=== PATIENT | female | born 1995 | race Caucasian/White ===

== ENCOUNTER 2021-11-16 17:37 | Emergency (ER) | payer OTHER ==
[~2021-11-16] VITALS: Ht 162.6 cm; Wt 115.2 kg
[~2021-11-16 17:37] MED LIST: CHOL10002; CYAN500 PO; DOXYCYC MONO; L-THEANINE25 GM PO; METF500 PO; Omeprazole20 M1 PO; Percocet 5-3251 EACH PO; Phenergan25 M1 PO; SERT100 PO; Sulfamethoxazo1 EAC4 PO; [UNRECOGNIZED DRUG - OTHER]
[2021-11-16 18:45] LABS: Source, Urine Clean Catch
[2021-11-16 18:48] LABS: Appearance, Urine Clear (Clear); Bilirubin, Urine Neg (Neg); Blood, Urine Neg (Neg); Glucose Qualitative, Urine Neg (Neg); Ketones, Urine Neg (Neg); Leukocyte Esterase, Urine Neg (Neg); Nitrite, Urine Neg (Neg); Protein, Urine Neg (Neg); Urobilinogen, Urine NORM (Normal); pH, Urine 6.5 (5.0-8.0)
[2021-11-16 19:09] LABS: BASOPHILS ABSOLUTE AUTO 0.03 K/mm3 (0.00-0.23); BASOPHILS PERCENT AUTO 0 % (0-2); EOSINOPHILS ABSOLUTE AUTO 0.03 K/mm3 (0.00-0.68); EOSINOPHILS PERCENT AUTO 0 % (0-6); Hematocrit 39.1 % (33.0-51.0); Hemoglobin 12.5 g/dL (11.5-16.0); IMMATURE GRAN ABSOLUTE AUTO 0.04 K/mm3 (0.00-0.10); IMMATURE GRAN PERCENT AUTO 0 % (0-1); LYMPHOCYTES ABSOLUTE AUTO 3.45 K/mm3 (0.84-5.20); LYMPHOCYTES PERCENT AUTO 25 % (21-46); MONOCYTES ABSOLUTE AUTO 0.83 K/mm3 (0.16-1.47); MONOCYTES PERCENT AUTO 6 % (4-13); Mean Corpuscular HGB 27.2 pg (26.0-34.0); Mean Corpuscular Volume 85 fL (80-100); Mean Platelet Volume 10.9 fL (9.1-12.4); NEUTROPHILS ABSOLUTE AUTO 9.29 K/mm3 (1.96-9.15); NEUTROPHILS PERCENT AUTO 68 % (41-73); Platelet Count 281 K/mm3 (150-400); RDW Standard Deviation 46.5 fL (35.1-46.3); White Blood Cell Count 13.67 K/mm3 (4.00-11.30)
[2021-11-16 19:15] LABS: Color, Urine Pale Yellow (P-Yellow)
[2021-11-16 19:29] LABS: Albumin, Blood 3.4 g/dL (3.4-5.0); Bilirubin, Total 0.3 mg/dL (0.1-1.0); Bun/Creatinine Ratio 11.8 (12.0-20.0); Calcium, Blood 9.2 mg/dL (8.5-10.1); Creatinine, Blood 0.59 mg/dL (0.40-1.00); Globulin, Blood 3.5 g/dL (2.2-4.0); Potassium, Blood 3.5 mmol/L (3.5-5.5); Total Protein, Blood 6.9 g/dL (6.4-8.2)
== END 2021-11-17 00:04 | disposition home or self-care (01) ==
LOC: ER 17:37
PROVIDERS: Physician Assistant
DX: O20.8 Other hemorrhage in early pregnancy (principal); Z3A.08 8 weeks gestation of pregnancy; O26.891 Other specified pregnancy related conditions, first trimester; Z67.91 Unspecified blood type, Rh negative; Z88.8 Allergy status to other drugs, medicaments and biological substances; Z79.899 Other long term (current) drug therapy
CPT/HCPCS: 36415; 76801; 76817; 80053; 81003; 85025; 86900; 86901; 96372; 99284-25; J2791

== ENCOUNTER 2022-06-02 04:27 | Inpatient (IN) | payer OTHER ==
[~2022-06-02] VITALS: Ht 162.6 cm; Wt 124.1 kg
[2022-06-02] MEDS ORDERED: PANT20 PO ×2 (05:22→05:23)
[2022-06-02] MEDS ORDERED: FERSU90EL (05:24)
[2022-06-02] MEDS ORDERED: Folbee Plus Tabl5 MG (05:24)
[2022-06-02] MEDS ORDERED: ASPI81CH PO (05:25)
[2022-06-02] MEDS ORDERED: VITAMIN D-40010 MC1 (05:25)
[2022-06-02] MEDS ORDERED: ESCI20 PO (05:26)
[2022-06-02 10:01] LABS: BASOPHILS ABSOLUTE AUTO 0.03 K/mm3 (0.00-0.23); BASOPHILS PERCENT AUTO 0 % (0-2); EOSINOPHILS ABSOLUTE AUTO 0.04 K/mm3 (0.00-0.68); EOSINOPHILS PERCENT AUTO 0 % (0-6); Hematocrit 33.9 % (33.0-51.0); Hemoglobin 11.2 g/dL (11.5-16.0); IMMATURE GRAN ABSOLUTE AUTO 0.04 K/mm3 (0.00-0.10); IMMATURE GRAN PERCENT AUTO 0 % (0-1); LYMPHOCYTES ABSOLUTE AUTO 2.16 K/mm3 (0.84-5.20); LYMPHOCYTES PERCENT AUTO 18 % (21-46); MONOCYTES ABSOLUTE AUTO 0.62 K/mm3 (0.16-1.47); MONOCYTES PERCENT AUTO 5 % (4-13); Mean Corpuscular HGB 27.9 pg (26.0-34.0); Mean Corpuscular Volume 84 fL (80-100); Mean Platelet Volume 11.3 fL (9.1-12.4); NEUTROPHILS ABSOLUTE AUTO 9.23 K/mm3 (1.96-9.15); NEUTROPHILS PERCENT AUTO 76 % (41-73); Platelet Count 190 K/mm3 (150-400); RDW Coefficient Variation 15.6 % (11.7-14.2); RDW Standard Deviation 47.1 fL (35.1-46.3); Red Blood Cell Count 4.02 M/mm3 (3.80-5.20); White Blood Cell Count 12.12 K/mm3 (4.00-11.30)
[2022-06-03 07:04] LABS: BASOPHILS ABSOLUTE AUTO 0.04 K/mm3 (0.00-0.23); BASOPHILS PERCENT AUTO 0 % (0-2); EOSINOPHILS ABSOLUTE AUTO 0.07 K/mm3 (0.00-0.68); EOSINOPHILS PERCENT AUTO 1 % (0-6); Hematocrit 32.7 % (33.0-51.0); Hemoglobin 10.8 g/dL (11.5-16.0); IMMATURE GRAN ABSOLUTE AUTO 0.04 K/mm3 (0.00-0.10); IMMATURE GRAN PERCENT AUTO 0 % (0-1); LYMPHOCYTES ABSOLUTE AUTO 2.91 K/mm3 (0.84-5.20); LYMPHOCYTES PERCENT AUTO 20 % (21-46); MONOCYTES ABSOLUTE AUTO 0.96 K/mm3 (0.16-1.47); MONOCYTES PERCENT AUTO 7 % (4-13); Mean Corpuscular HGB 28.3 pg (26.0-34.0); Mean Corpuscular Volume 86 fL (80-100); Mean Platelet Volume 11.5 fL (9.1-12.4); NEUTROPHILS ABSOLUTE AUTO 10.39 K/mm3 (1.96-9.15); NEUTROPHILS PERCENT AUTO 72 % (41-73); Platelet Count 178 K/mm3 (150-400); RDW Coefficient Variation 15.8 % (11.7-14.2); RDW Standard Deviation 49.3 fL (35.1-46.3); Red Blood Cell Count 3.81 M/mm3 (3.80-5.20); White Blood Cell Count 14.41 K/mm3 (4.00-11.30)
[2022-06-04] MEDS ORDERED: IBUP800 PO (13:59)
--- NOTE | 2022-06-04 18:22 | NUR ---
BOARDER STATUS MOTHER TO BOARDER STATUS BABY WONT BE DISCHARGE UNTIL THE MORNING. CARING FOR SELF AND BABY INDEPENDANTLY. LOCHIA SCANT. VSS. AFEBRILE. VERBALIZES UNDERSTANDING OF DC INSTRUCTIONS AND FOLLOW UP APPIONTMENTS. NO QUESTIONS OR CONCERNS.
== END 2022-06-04 18:10 | disposition home or self-care (01) | DRG 807 ==
LOC: OBS 04:27 → BC 04:29 → OBS 04:41 → BC 19:17
PROVIDERS: Family Medicine; ADMIT Obstetrics & Gynecology
PROC: 10E0XZZ Delivery of Products of Conception, External Approach (ICD-10-PCS; principal; 2022-06-02)
PROC: 3E0R3BZ Introduction of Anesthetic Agent into Spinal Canal, Percutaneous Approach (ICD-10-PCS; 2022-06-02)
PROC: 00HU33Z Insertion of Infusion Device into Spinal Canal, Percutaneous Approach (ICD-10-PCS; 2022-06-02)
DX: O42.02 Full-term premature rupture of membranes, onset of labor within 24 hours of rupture (principal); Z37.0 Single live birth; O99.344 Other mental disorders complicating childbirth; F41.9 Anxiety disorder, unspecified; Z3A.37 37 weeks gestation of pregnancy; Z98.890 Other specified postprocedural states; Z88.8 Allergy status to other drugs, medicaments and biological substances; Z79.899 Other long term (current) drug therapy; Z79.82 Long term (current) use of aspirin
CPT/HCPCS: 36415; 51702; 59025; 59070; 85025; 86850; 86870; 86900; 86901; A9270; C1751; C9113; J1885; J2210; J2405; J2590; J7120

== ENCOUNTER 2022-07-04 20:19 | Observation (INO) | payer OTHER ==
[~2022-07-04] VITALS: Ht 162.6 cm; Wt 118.0 kg
[~2022-07-04 20:19] MED LIST changes: +ASPI81CH PO; +CEFD300 PO; +ESCI20 PO; +FERSU90EL; +Folbee Plus Tabl5 MG; +IBUP800 PO; +PANT20 PO; +VITAMIN D-40010 MC1
[2022-07-04 21:22] LABS: BASOPHILS ABSOLUTE AUTO 0.03 K/mm3 (0.00-0.23); BASOPHILS PERCENT AUTO 0 % (0-2); EOSINOPHILS PERCENT AUTO 1 % (0-6); Hematocrit 39.5 % (33.0-51.0); IMMATURE GRAN ABSOLUTE AUTO 0.01 K/mm3 (0.00-0.10); IMMATURE GRAN PERCENT AUTO 0 % (0-1); LYMPHOCYTES PERCENT AUTO 13 % (21-46); MONOCYTES ABSOLUTE AUTO 0.36 K/mm3 (0.16-1.47); MONOCYTES PERCENT AUTO 5 % (4-13); Mean Corpuscular HGB 28.2 pg (26.0-34.0); Mean Corpuscular HGB Conc 32.9 g/dL (31.5-36.5); Mean Corpuscular Volume 86 fL (80-100); Mean Platelet Volume 10.5 fL (9.1-12.4); NEUTROPHILS ABSOLUTE AUTO 6.43 K/mm3 (1.96-9.15); NEUTROPHILS PERCENT AUTO 81 % (41-73); Platelet Count 236 K/mm3 (150-400); RDW Coefficient Variation 15.3 % (11.7-14.2); RDW Standard Deviation 48.4 fL (35.1-46.3); Red Blood Cell Count 4.61 M/mm3 (3.80-5.20); White Blood Cell Count 7.93 K/mm3 (4.00-11.30)
[2022-07-04 21:30] LABS: Source, Urine Clean Catch
[2022-07-04 21:37] LABS: Appearance, Urine Clear (Clear); Bilirubin, Urine Neg (Neg); Blood, Urine 3+ (Neg); Color, Urine Yellow (P-Yellow); Glucose Qualitative, Urine Neg (Neg); Ketones, Urine Neg (Neg); Leukocyte Esterase, Urine 2+ (Neg); Nitrite, Urine Neg (Neg); Protein, Urine 1+ (Neg); Urobilinogen, Urine NORM (Normal)
[2022-07-04 21:40] LABS: Albumin, Blood 3.3 g/dL (3.4-5.0); Bilirubin, Total 0.3 mg/dL (0.1-1.0); Bun/Creatinine Ratio 18.7 (12.0-20.0); Calcium, Blood 8.4 mg/dL (8.5-10.1); Creatinine, Blood 0.91 mg/dL (0.40-1.00); Globulin, Blood 3.3 g/dL (2.2-4.0); Potassium, Blood 3.9 mmol/L (3.5-5.5); Total Protein, Blood 6.6 g/dL (6.4-8.2)
[2022-07-04 21:49] LABS: Bacteria Many /hpf; Red Blood Cells, Urine 0-2 /hpf (0-2); Squamous Epithelial Cells Mod /hpf (Few)
[2022-07-05] MEDS ORDERED: [UNRECOGNIZED DRUG - OTHER] PO (01:46)
[2022-07-05] MEDS ORDERED: FERROUS GLUCON240 MG PO (01:51)
[2022-07-05] MEDS ORDERED: VITAMIN B-625 MG PO (01:51)
[2022-07-05] MEDS ORDERED: PANTOPRAZOLE SO40 M2 PO (01:52)
[2022-07-05] MEDS ORDERED: LORAZEPAM0.5 MG PO (01:53)
--- NOTE | 2022-07-05 05:08 | NUR ---
Assumed care at 0300, patient [id number], cooperative. Pain felt upon palpation of RT Upper Abdomen, denies pain in left quadrant. Bowel sounds present. Patient states pain has decreased since pain med given in ED. Patient denies nausea at this time. Maintenance fluids running, patient is NPO. No acute safety concerns at this time.
--- NOTE | 2022-07-05 15:00 | NUR ---
PT RETURNED FROM PACU THIS AFTERNOON APPROX. 1315. VS OBTAINED AND STABLE. PT DROWSY BUT ABLE TO RESPOND APPROPRIATELY. STERI STRIPS IN PLACE TO 4 INCISION SITES. MEDICATED WITH TORADOL ON ARRIVAL FOR PAIN AND WITHIN 30 MINUTES OXYCODONE GIVEN DUE TO NO PAIN RELIEF. WHEN SHE CONTINUED TO STATE NO IMPROVEMENT, SHE WAS ENCOURAGED TO GET OOB AND TAKE A WALK. APPEARED WEAK AND A BIT UNSTEADY BUT WAS ABLE TO WALK AROUND LOOP OF UNIT. DID REPORT HER PAIN GOT BETTER WHEN SHE WAS UP MOVING. SAT BACK DOWN IN CHAIR AND ATE A SMALL SNACK.
[2022-07-05] MEDS ORDERED: OXYC5 PO (17:38)
--- NOTE | 2022-07-05 18:59 | NUR ---
PT TOOK ANOTHER WALK OR TWO IN HALLWAY AND TOLERATED WELL WITH STABILITY IMPROVED. STATED SHE FELT SHE COULD GO HOME TONIGHT AND CALLED DR. ROSA. DISCHARGE ORDERS COMPLETED AND DISCUSSED WITH PT EXPRESSING UNDERSTANDING. TO [place] VIA W/C WITH FRIEND DRIVING HER HOME.
--- NOTE | 2022-07-06 14:10 | NUR ---
07/06/22 1410 Suzy Paul VERIFICATIONS: EDIT CHART.
== END 2022-07-05 18:31 | disposition home or self-care (01) ==
LOC: ER 20:19 → MEDS 07-05 01:50 → ER 07-05 01:50 → MEDS 07-05 03:06
PROVIDERS: Emergency Medicine; ADMIT Surgery
DX: K80.20 Calculus of gallbladder without cholecystitis without obstruction (principal); F41.9 Anxiety disorder, unspecified; F32.A Depression, unspecified
CPT/HCPCS: 36415; 76705; 80053; 81001; 81025; 85025; 87086; A9270; J0690; J0694; J1100; J1885; J2250; J2405; J2550; J2704; J2795; J3010; J7030; J7120